=== PATIENT | male | born 1935 | race Caucasian/White ===

== ENCOUNTER 2017-04-14 16:18 | Inpatient (IN) | payer MEDICARE, OTHER ==
[~2017-04-14] VITALS: Ht 175.3 cm; Wt 56.3 kg
--- NOTE | 2017-04-14 17:20 | NUR ---
PATIENT ARRIVED TO UNIT FROM [facility] AT 1720. WILL MONITOR AND ASSESS PATIENT.
[2017-04-14 17:30] VITALS: BP 139/80
[2017-04-14] MEDS ORDERED: LEVO100T9 PO (17:43)
[2017-04-14] MEDS ORDERED: ATEN50TA PO (17:45)
[2017-04-14] MEDS ORDERED: ALLO100T PO (17:45)
[2017-04-14] MEDS ORDERED: ASCO10007 PO (17:52)
[2017-04-14] MEDS ORDERED: CYAN100020 SL (17:52)
[2017-04-14] MEDS ORDERED: CALC300T4 PO (17:52)
[2017-04-14] MEDS ORDERED: ASPI-605 PO ×2 (17:52→17:56)
[2017-04-14] MEDS ORDERED: CHOL20004 PO (17:52)
[2017-04-14] MEDS ORDERED: FISH1CAP16 PO (17:56)
[2017-04-14] MEDS ORDERED: ACETAMINOPHEN 325 MG TABLET PO PRN (18:30)
[2017-04-14] MEDS ORDERED: MAG HYDROX/AL HYDROX/SIMETH 30 ML UDC PO PRN (18:30)
[2017-04-14] MEDS ORDERED: ONDANSETRON HCL/PF 4 MG/2 ML VIAL IVP PRN (18:30)
[2017-04-14] MEDS ORDERED: MORPHINE SULFATE INJ 2 MG/ML DISP.SYRIN IV PRN (18:30)
[2017-04-14] MEDS ORDERED: Z GUARD REMEDY 2 OZ OINT TP PRN (18:30)
[2017-04-14] MEDS ORDERED: ENOXAPARIN SODIUM 40 MG/0.4 ML DISP.SYRIN SQ SCH (18:30)
[2017-04-14] MEDS ORDERED: MAGNESIUM HYDROXIDE 30 ML UDC PO PRN (18:30)
[2017-04-14] MEDS ORDERED: HYDROCODONE/APAP 5/325MG 1 EACH TABLET PO PRN (18:30)
[2017-04-14] MEDS ORDERED: ZOLPIDEM TARTRATE 5 MG TABLET PO PRN (18:30)
--- NOTE | 2017-04-14 18:30 | NUR ---
PATIENT REQUESTED TO BE DNR/DNI. DR BAHENA MADE AWARE AND REQUESTED TO PUT HIM ON DNR / DNI STATUS TILL A COPY CAN BE PROVIDED FROM A FAMILY MEMBER
--- NOTE | 2017-04-14 18:40 | NUR ---
PHARMACY CALLED TO ORDER CBC AND BMP STAT DUE TO LOVENOX ORDER AT 1830
--- NOTE | 2017-04-14 18:45 | NUR ---
RN ADMITTING AND CLOSING NOTES PATIENT ARRIVED TO UNIT AT 1720. MED [facility] COMPLETED BASES ON PATIENT LIST. PATIENT IS ALERT AND ORIENTED TO NAME, PLACE AND TIME. NO SIGNS AND SYMPTOMS OF DISTRESS. ADMITTING ORDERS RECEIVED AND CARRIED OUT. BELONGING LIST COMPETED. PATIENT SIGNED THE BELONGING LIST; SIGNED FORM PLACED IN THE CHART. PICTURES WERE TAKEN AND PLACED IN THE CHART. PATIENT CAME TO THE UNIT WITH ABDOMINAL BINDER RELATED TO HERNIA AND REFUSED TO REMOVE IT SO I CAN ASSESS THE SKIN AND BUTTOCKS; ALL OTHER AREA ASSESSED. MRSA SWAB COMPLETED AND SENT TO LAB. DVT PUMP APPLIED. LOVENOX INJECTION WAS NOT ADMINISTERING DUE TO LAB RESULTS PENDING. BED IN LOW POSITION, LOCKED AND TWO SIDE RAILS ARE UP. CALL LIGHT WITHIN REACH. ALL NURSING CARE ANTICIPATED. PATIENT KEPT CLEAN AND SAFE. WILL ENDORSE TO ANIMAL FEEDER NURSE
[2017-04-14 19:11] LABS: BASOPHILS % (AUTO) 0.2 % (0.0-2.0); EOSINOPHILS # (AUTO) 0.5 /CMM (0.0-0.7); EOSINOPHILS % (AUTO) 5.2 % (0.0-6.0); HEMATOCRIT 33 % (39-51); HEMOGLOBIN 11.1 g/dL (13.5-17.5); LYMPHOCYTES # (AUTO) 2.1 /CMM (0.8-4.8); LYMPHOCYTES % (AUTO) 22.7 % (20.0-44.0); MEAN CORPUSCULAR HEMOGLOBIN 34 PG (26.0-33.0); MEAN CORPUSCULAR HGB CONC 33 g/dl (31.0-36.0); MEAN CORPUSCULAR VOLUME 104 fL (80-96); MONOCYTES # (AUTO) 1.3 /CMM (0.1-1.30); MONOCYTES % (AUTO) 14.1 % (2.0-12.0); NEUTROPHILS # (AUTO) 5.4 /CMM (1.8-8.9); NEUTROPHILS % (AUTO) 57.8 % (43.0-81.0); PLATELET COUNT (AUTO) 173 /CMM (150-450); RDW COEFFICIENT OF VARIATION 15.6 (11.5-15.0); RED BLOOD CELL COUNT(AUTO) 3.21 MIL/uL (4.5-6.0); WHITE BLOOD COUNT (AUTO) 9.4 K/uL (4.3-11.0)
[2017-04-14 19:17] LABS: CALCIUM, SERUM 8.8 mg/dL (8.5-10.1); CARBON DIOXIDE 27 mmol/L (21-32); CHLORIDE 105 mmol/L (98-107); CREATININE 1.5 mg/dL (0.6-1.3); GLUCOSE 114 mg/dL (74-106); POTASSIUM 4.2 mmol/L (3.5-5.1); SODIUM SERUM 139 mmol/L (136-145); UREA NITROGEN, BLOOD 40 mg/dL (7-18)
--- NOTE | 2017-04-14 19:40 | NUR ---
MS RN OPENING NOTES RECEIVED PATIENT LAYING IN BED IN SEMI CHAPIN POSITION, NO C/O PAIN TO HIP AREA AT THIS TIME, PATIENT STATED HE ONLY FEELS THE PAIN WHEN HE WALKS TO THE TOILET & HE PREFERS TO GO TO THE BATHROOM INSTEAD OF USING THE URINAL. IV ACCESS TO RFA # 20, HL, INTACT PATENT. NO SOB, NO OTHER ACUTE DISTRESS OR DISCOMFORT NOTED. BE IN LOW LOCKED POSITION. CALL LIGHT WITHIN REACH. CONTINUING TO MONITOR.
[2017-04-14] MEDS: ENOXAPARIN SODIUM 30 MG/0.3 ML DISP.SYRIN SQ SCH (20:00)
--- NOTE | 2017-04-14 20:12 | NUR ---
REFUSED LOVENOX PATIENT REFUSED TO TAKE LOVENOX. HE STATED, "HE WOULD WAIT TO SEE THE DOCTOR TOMORROW & DISCUSS THEN HE WOULD DECIDE WHETHER HE WANT TO TAKE LOVENOX OR NOT."
--- NOTE | 2017-04-14 21:00 | NUR ---
RN NOTES: PT RECEIVED WITH ABDOMINAL BINDER IN PLACED STATED IT'S FOR HIS HERNIA, C/O PAIN ONLY WHEN HE'S MOVING, OFFERED PAIN MEDICATION BUT PATIENT REFUSED, STATED HE'S OKAY AND NOT IN PAIN IF HE'S JUST IN BED. ENCOURAGE TURNING AND REPOSITIONING TO PREVENT SACRAL/HIP REDNESS. PT AGREE. PT ABLE TO AMBULATE TO THE BATHROOM USING FWW.
--- NOTE | 2017-04-14 22:00 | NUR ---
RN NOTES: REFUSED TO BE REPOSITION, STATED WHEN HE CHANGED HIS POSITION HE FEELS THE PAIN, OFFERED PAIN MEDICATION BUT PT KEPT REFUSING, EDUCATION PROVIDED TO THE PT
[2017-04-14 22:06] VITALS: BP 154/75
--- NOTE | 2017-04-15 06:12 | NUR ---
RN NOTES: TALKED TO NEGRA, RELAYED ABOUT PT REQUEST FOR BREAKFAST, ORANGE JUICE WHITE TOAST 2 FRIED EGGS, ONLY SCRAMBLED AVAILABLE, NO MILK, COFFEE EXTRA PEPPER
[2017-04-15 06:34] LABS: BASOPHILS % (AUTO) 0.3 % (0.0-2.0); EOSINOPHILS # (AUTO) 0.7 /CMM (0.0-0.7); EOSINOPHILS % (AUTO) 7.8 % (0.0-6.0); HEMATOCRIT 31 % (39-51); HEMOGLOBIN 10.6 g/dL (13.5-17.5); LYMPHOCYTES # (AUTO) 2.1 /CMM (0.8-4.8); LYMPHOCYTES % (AUTO) 24.4 % (20.0-44.0); MEAN CORPUSCULAR HEMOGLOBIN 35 PG (26.0-33.0); MEAN CORPUSCULAR HGB CONC 34 g/dl (31.0-36.0); MEAN CORPUSCULAR VOLUME 103 fL (80-96); MONOCYTES # (AUTO) 1.1 /CMM (0.1-1.30); NEUTROPHILS # (AUTO) 4.6 /CMM (1.8-8.9); NEUTROPHILS % (AUTO) 54.5 % (43.0-81.0); PLATELET COUNT (AUTO) 162 /CMM (150-450); RDW COEFFICIENT OF VARIATION 15.7 (11.5-15.0); RED BLOOD CELL COUNT(AUTO) 3.05 MIL/uL (4.5-6.0); WHITE BLOOD COUNT (AUTO) 8.4 K/uL (4.3-11.0)
[2017-04-15 06:39] LABS: ALANINE AMINOTRANSFERASE 20 U/L (12-78); ALBUMIN 2.6 g/dL (3.4-5.0); ALKALINE PHOSPHATASE 48 U/L (46-116); ASPARTATE AMINOTRANSFERASE 29 U/L (15-37); BILIRUBIN,TOTAL 1.2 mg/dL (0.2-1.0); CALCIUM, SERUM 8.8 mg/dL (8.5-10.1); CARBON DIOXIDE 25 mmol/L (21-32); CHLORIDE 105 mmol/L (98-107); CREATININE 1.4 mg/dL (0.6-1.3); GLUCOSE 99 mg/dL (74-106); MAGNESIUM 1.9 mg/dL (1.8-2.4); PHOSPHORUS 2.8 mg/dL (2.5-4.9); POTASSIUM 4.5 mmol/L (3.5-5.1); SODIUM SERUM 138 mmol/L (136-145); TOTAL PROTEIN, SERUM 6.1 g/dL (6.4-8.2); UREA NITROGEN, BLOOD 40 mg/dL (7-18)
--- NOTE | 2017-04-15 06:46 | NUR ---
MS RN CLOSING NOTES PATIENT SLEPT COMFORTABLY AT NIGHT. NO C/O PAIN OR COMPLICATIONS NOTED. ABLE TO USE WALKER FOR BRP WITH STANDBY ASSISTANCE. ABDOMINAL BINDER REMAINS IN PLACE WHILE PT IS AWAKE BUT OFF WHILE SLEEPS. IV ACCESS TO RFA # 20, HL, INTACT PATENT. ALL NEEDS ATTENDED TO & MET. BED IN LOW LOCKED POSITION. CALL LIGHT WITHIN REACH. WILL ENDORSE TO AM SHIFT FOR CONTINUITY OF CARE.
[2017-04-15 06:50] LABS: THYROID STIMULATING HORMONE 0.762 uIU/mL (0.358-3.74)
[2017-04-15] MEDS: LEVOTHYROXINE SODIUM 100 MCG TABLET PO SCH (07:01)
--- NOTE | 2017-04-15 07:12 | NUR ---
RN OPEN NOTES RECEIVED REPORT FROM [employer] HOME TEACHER NURSE. PATIENT IS IN BED, AWAKE. NO SIGNS AND SYMPTOMS OF DISTRESS. PAIN UPON MOVEMENT. BED IN LOW POSITION, LOCKED AND TWO SIDE RAILS ARE UP. CALL LIGHT WITHIN REACH. WILL CONTINUE TO ASSESS AND MONITOR PATIENT THROUGHOUT MY SHIFT
--- NOTE | 2017-04-15 07:45 | NUR ---
PATIENT REFUSED CHEST XRAY
[2017-04-15 08:00] VITALS: BP 144/77
--- NOTE | 2017-04-15 09:15 | NUR ---
WOUND CARE NURSE AT BEDSIDE
[2017-04-15] MEDS: ASCORBIC ACID 500 MG TABLET PO SCH (09:20)
[2017-04-15] MEDS: CHOLECALCIFEROL 1,000 UNIT TABLET (VIT D3) PO SCH (09:21)
[2017-04-15] MEDS: CYANOCOBALAMIN 500 MCG TABLET PO SCH (09:21)
[2017-04-15] MEDS: CALCIUM CARBONATE 500 MG TAB.CHEW PO SCH (09:21)
[2017-04-15] MEDS: ASPIRIN EC 81 MG TABLET.DR PO SCH (09:22)
[2017-04-15] MEDS: ALLOPURINOL 100 MG TABLET PO SCH (09:22)
--- NOTE | 2017-04-15 09:22 | NUR ---
WOUND CARE CONSULT: PT PRESENTS WITH DRY ABRASIONS PRESENT ON ADMISSION. PT FELL AT HOME. PT ABLE TO ASSIST WITH TURNING AND REPOSITIONING IN BED AND IS AMBULATORY WITH ASSISTANCE AND WALKER. PT IS CONTINENT. ALL SKIN PROTECTION MEASURES IN PLACE. DISCUSSED WITH NURSING STAFF. WILL SEE PRN. VERA IN AGREEMENT WITH PLAN OF CARE. CURRENT IZA SCORE IS 18. Addendum: 04/15/17 at 0924 by MAURILIO UNDERWOOD WNDNU Amended: Links added.
[2017-04-15] MEDS: ATENOLOL 50 MG TABLET PO SCH (09:23)
--- NOTE | 2017-04-15 09:30 | NUR ---
DR BAHENA AT BEDSIDE
--- NOTE | 2017-04-15 11:30 | NUR ---
RADIOLOGY CALLED REQUESTED TO CANCEL CHEST X RAY ORDER
--- NOTE | 2017-04-15 14:24 | NUR ---
BALBIR CLEARED PATIENT. NO SURGERY NEEDED Addendum: 04/15/17 at 1426 by CONCHA PEARCE RN DR SHRUTI WADDELL
[2017-04-15 16:00] VITALS: BP 137/75
--- NOTE | 2017-04-15 18:49 | NUR ---
RN CLOSING NOTES PATIENT IS ALERT AND ORIENTED TO NAME, PLACE AND TIME. NO SIGNS AND SYMPTOMS OF DISTRESS. DENIED PAIN. PATIENT WAS CLEARED BY ORTHO, NO SURGERY. PER PT, PATIENT NEEDS A REHAB. BED IN LOW POSITION, LOCKED AND TWO SIDE RAILS ARE UP. CALL LIGHT WITHIN REACH. ALL NURSING CARE ANTICIPATED. PATIENT KEPT CLEAN AND SAFE. WILL ENDORSE TO [employer]ERS[employer] ADVISORY SERVICE LIBRARIAN NURSE
--- NOTE | 2017-04-15 19:00 | NUR ---
MS RN OPENING NOTES RECEIVE PT IN BED, PT A/O X4, PT NO ACUTE DISTRESS NOTED. TOLERATING ROOM AIR 97% BREATHING EVEN AND UNLABORED, HEAD OF BED ELEVATED FOR BETTER LUNG EXPANSION AND GOOD CIRCULATION. SAFETY MEASURES IN PLACE, BED LOCKED AND IN LOWEST POSITION, CALL LIGHT IN REACH. WILL CONTINUE TO MONITOR.
[2017-04-15 20:00] VITALS: BP 128/68
[2017-04-15] MEDS: ENOXAPARIN SODIUM 30 MG/0.3 ML DISP.SYRIN SQ SCH (21:00)
--- NOTE | 2017-04-15 21:43 | NUR ---
MS RN NOTES LOVENOX 30 MG SQ NON ADMINISTRATION PATIENT REFUSED MEDICATION DESPITE EXPLANATION OF RISKS AND BENEFITS OFFERED 3 TIMES STILL REFUSED M. D AWARE
--- NOTE | 2017-04-16 06:24 | NUR ---
MS RN CLOSING NOTES ASLEEP AND EASILY AWAKEN, HEAD OF BED ELEVATED FOR BETTER LUNG EXPANSION AND GOOD CIRCULATION, TOLERATING ROOM AIR 98% IN STABLE CONDITION, NOT IN RESPIRATORY DISTRESS, GOOD SKIN CARE PROVIDED. RESPIRATIONS EVEN AND UNLABORED, AFEBRILE, NEEDS ATTENDED AND ANTICIPATED, NURSING CARE RENDERED, KEPT CLEAN AND DRY AND COMFORTABLE,FREQUENT VISUAL CHECK DONE EVERY 2 HOURS FOR SAFETY SAFE HAZARD FREE ENVIRONMENT PROVIDED. CALL LIGHT WITHIN EASY TO REACH, ON LOW BED AT ALL TIMES TO ENSURE SAFETY, WILL ENDORSE TO THE NEXT SHIFT CONTINUE PLAN OF CARE.
[2017-04-16 06:25] LABS: BASOPHILS % (AUTO) 0.3 % (0.0-2.0); EOSINOPHILS # (AUTO) 0.9 /CMM (0.0-0.7); EOSINOPHILS % (AUTO) 10.6 % (0.0-6.0); HEMATOCRIT 31 % (39-51); HEMOGLOBIN 10.4 g/dL (13.5-17.5); LYMPHOCYTES # (AUTO) 2.5 /CMM (0.8-4.8); LYMPHOCYTES % (AUTO) 30.5 % (20.0-44.0); MEAN CORPUSCULAR HEMOGLOBIN 35 PG (26.0-33.0); MEAN CORPUSCULAR HGB CONC 34 g/dl (31.0-36.0); MEAN CORPUSCULAR VOLUME 104 fL (80-96); MONOCYTES % (AUTO) 12.5 % (2.0-12.0); NEUTROPHILS # (AUTO) 3.7 /CMM (1.8-8.9); NEUTROPHILS % (AUTO) 46.1 % (43.0-81.0); PLATELET COUNT (AUTO) 167 /CMM (150-450); RDW COEFFICIENT OF VARIATION 15.5 (11.5-15.0); RED BLOOD CELL COUNT(AUTO) 2.98 MIL/uL (4.5-6.0); WHITE BLOOD COUNT (AUTO) 8.1 K/uL (4.3-11.0)
[2017-04-16 06:53] LABS: CALCIUM, SERUM 8.7 mg/dL (8.5-10.1); CARBON DIOXIDE 25 mmol/L (21-32); CHLORIDE 104 mmol/L (98-107); CREATININE 1.4 mg/dL (0.6-1.3); GLUCOSE 91 mg/dL (74-106); POTASSIUM 4.5 mmol/L (3.5-5.1); SODIUM SERUM 138 mmol/L (136-145); UREA NITROGEN, BLOOD 34 mg/dL (7-18)
--- NOTE | 2017-04-16 07:30 | NUR ---
MS RN AM NOTES RECEIVE PT IN BED, PT A/O X4, PT NO ACUTE DISTRESS NOTED. TOLERATING ROOM AIR 98% BREATHING EVEN AND UNLABORED, HEAD OF BED ELEVATED FOR BETTER LUNG EXPANSION AND GOOD CIRCULATION. DENIES PAIN AT THIS TIME. RFA G20 IVHL FLUSHES WELL, SITE CLEAR. REGULAR DIET. AMBULATES WITH P.T. SAFETY MEASURES IN PLACE, BED LOCKED AND IN LOWEST POSITION, CALL LIGHT IN REACH. WILL CONTINUE TO MONITOR.
[2017-04-16 08:00] VITALS: BP 155/75
[2017-04-16 08:09] VITALS: BP 155/75
[2017-04-16] MEDS: LEVOTHYROXINE SODIUM 100 MCG TABLET PO SCH (08:33)
[2017-04-16] MEDS: ASCORBIC ACID 500 MG TABLET PO SCH (08:33)
[2017-04-16] MEDS: ALLOPURINOL 100 MG TABLET PO SCH (08:33)
[2017-04-16] MEDS: ASPIRIN EC 81 MG TABLET.DR PO SCH (08:34)
[2017-04-16] MEDS: CYANOCOBALAMIN 500 MCG TABLET PO SCH (08:34)
[2017-04-16] MEDS: CALCIUM CARBONATE 500 MG TAB.CHEW PO SCH (08:34)
[2017-04-16] MEDS: ATENOLOL 50 MG TABLET PO SCH (08:34)
[2017-04-16] MEDS: CHOLECALCIFEROL 1,000 UNIT TABLET (VIT D3) PO SCH (08:34)
--- NOTE | 2017-04-16 09:30 | NUR ---
MS RN NOTES DUE MEDS GIVEN
[2017-04-16] MEDS ORDERED: FLU VACC QS 2017-18(36MOS+)/PF 0.5 ML DISP.SYRIN IM ONE (12:00)
--- NOTE | 2017-04-16 12:09 | NUR ---
MS RN NOTES RECEIVED FLU SHOT IM RT DELTOID
[2017-04-16 16:00] VITALS: BP 140/77
--- NOTE | 2017-04-16 17:15 | NUR ---
MS RN NOTES PATIENT DISCHARGED TO [facility] PER MD IN STABLE CONDITION. PROVIDED DC INSTRUCTIONS, MED RECON LIST AND HEALTH TEACHINGS. TO FOLLOW UP WITH DR. BLANCAS AND PMD IN 1-2 WEEKS PER FACILITY PROTOCOL. RFA G20 REMOVED, CATH TIP COMPLETE, NO BLEEDING DRESSING IN PLACE. ALL BELONGINGS CHECKED AND RETURNED, ALL PAPERWORKS SIGNED. PICKED BY 2 AMBULANCE CREW AND WILL TRANSPORT PATIENT TO FACILITY. REPORT GIVEN TO JEEVAN RN FACILITY STAFF EARLIER. PATIENT REFUSED PHOTOS OF SKIN ISSUES AND STATED THAT ITS ALREADY BEEN TAKEN AND NO NEED. EXPLAINED THAT IT IS OUR PROTOCOL TO TAKE PICTURES UPON ADMISSION AND DISCHARGE BUT STILL REFUSED.
== END 2017-04-16 17:15 | DRG 535 ==
LOC: MEDSG2 17:14
PROVIDERS: ADMIT Family Medicine; ATTEND Family Medicine
DX: S32.502A Unspecified fracture of left pubis, initial encounter for closed fracture (principal); S32.401A Unspecified fracture of right acetabulum, initial encounter for closed fracture; E43 Unspecified severe protein-calorie malnutrition; M81.0 Age-related osteoporosis without current pathological fracture; W19.XXXA Unspecified fall, initial encounter; Z91.81 History of falling; Y92.009 Unspecified place in unspecified non-institutional (private) residence as the place of occurrence of the external cause; I10 Essential (primary) hypertension; M10.9 Gout, unspecified; E89.0 Postprocedural hypothyroidism; E55.9 Vitamin D deficiency, unspecified
CPT/HCPCS: 36415; 80048-TC; 80053-TC; 82306; 82746; 83735-TC; 84100-TC; 84443-TC; 85025-TC; 87081-TC; Q2036; Z7610